=== PATIENT | male | born 1955 | race Caucasian/White ===

== ENCOUNTER 2025-06-25 20:46 | Emergency (ER) | payer BC, MEDICAID ==
[~2025-06-25] VITALS: Ht 175.3 cm; Wt 98.0 kg
[~2025-06-25 20:46] MED LIST: CLIN-224 PO; NO HOME MEDS
[2025-06-25 21:04] VITALS: BP 149/95; PULSE 85; O2SAT 97
--- NOTE | 2025-06-25 21:19 | ELECTROCARDIOGRAPH REPORT ---
[facility] Test Date: 2025-06-25 Test Time: 21:16:48 Pat Name: MELISSA GREER Department: [facility] Patient ID: [id number] Room: Gender: M Pack Master: : 1955 Requested By: NORIS FREGOSO Order Number: [id number] Reading MD: Dr. Markus Levi Measurements Intervals [place] Rate: 84 P: 57 DE: 146 QRS: 8 QRSD: 91 T: 32 QT: 366 QTc: 433 Interpretive Statements Sinus rhythm Low voltage, precordial leads Abnormal R-wave progression, late transition Electronically Signed On 06-30-2025 20:44:[address] Markus Levi Please click the below link to view image of tracing.
[2025-06-25 23:38] VITALS: RESP 16
[2025-06-26 00:18] VITALS: TEMP 97.8
--- NOTE | 2025-06-26 00:18 | Physician Documentation ---
History of Present Illness ~ Chief Complaint: Dizziness Stated Complaint: DIZZY Time Seen by MD: 00:20 Primary Medical Doctor: [facility] [place] This is a 69-year-old male who presents to the emergency department with concern for several years of episodes of dizziness described as the world moving around me without clear trigger that have become more frequent in the last few weeks. Patient reports no other acute symptoms or concerns. Patient reports symptoms are not currently present. Medication Reconciliation Allergies: Coded Allergies: codeine (Verified Adverse Reaction, Intermediate, GI UPSET, 06/15/12) Scheduled Clindamycin HCL* (Clindamycin HCL*), 1 CAP PO Q6H Clindamycin HCL* (Clindamycin HCL*), 1 CAP PO Q6H Meclizine HCl (Meclizine HCl), 1 TAB PO TID PRN Miscellaneous Medications Home Med List (No Home Medications), (Reported) Past Medical History Past Medical History: Emphysema, Cellulitis, *INFECTIOUS DZ* Past Surgical History: orthopedic surgeries, other Other Past Family History: NONCONTRIBUTORY Alcohol Use: Occasionally Drug Use: marijuana Lives with: Alone Lives In: Home Occupation: unemployed Review of Systems ROS As stated above in the HPI, otherwise all systems are reviewed and negative. Physical Exam Vital Signs: Temperature: 97.8, Source: Temporal, Heart Rate: 85, Respiratory Rate: 16, BP: 149/95, Pulse Oximetry: 97, Weight: 98.000 Physical Exam VITALS: Reviewed and as above. GENERAL: Alert, nontoxic appearing, no apparent distress. HEENT: PERRLA, EOMI RESPIRATORY: No increased work of breathing, no respiratory distress, speaking in full clear sentences NEURO: Normal steady gait without assistance, no focal motor weakness Progress Results/Orders Results/Orders Vital Signs 06/25/25 06/25/25 06/26/25 21:04 23:38 00:18 Temp 97.8 97.8 Pulse 85 Resp 15 16 B/P (MAP) 149/95 Pulse Ox 97 EKG/XRAY/CT/US/VASC/MRI EKG : Additional Comment EKG at 9:16 p.m. interpreted by myself as sinus rhythm at a rate of 84, normal axis, no ST-elevation or depression. Medical Decision Making Additional information obtaine: N/A Findings This 69-year-old male presented with episodes of dizziness described as the world moving around me more frequent you last several weeks, an EKG was obtained which did not demonstrate significant abnormality including no evidence of dysrhythmia, myocardial infarction, or ischemia. Patient was roomed and awaiting provider when he informed staff that he no longer wanted to be seen, had a brief discussion with the patient about his symptoms and advised him that if he wanted to be worked up he could stay however based on his description of symptoms you may benefit from meclizine for vertigo, with shared decision-making patient will continue his workup outpatient and we will be discharged with a prescription for meclizine. It is reassuring patient is currently asymptomatic and had no other neuro findings and reported no other neuro concerns related to episodes of dizziness. Patient has been advised that not all possible causes of his symptoms have been ruled out including serious condition such as stroke or TIA. Patient provided careful return to care precautions, follow up instructions, and home care instructions which he verbalized understanding of. Differential Dx:Considerations: Include: anemia, CVA, dehydration, dysrhythmia, electrolyte imbalance, encephalopathy, Guillain-[place], hypoglycemia, hypotension, hypovolemia, labyrinthitis, Meniere's disease, myasathenia gravis, myocardial infarction, pulmonary embolus, renal failure, respiratory failure, TIA, vertigo central, vertigo peripheral, vestibular neuronitis Departure Time of Disposition: 00:18 Disposition: 01 HOME / SELF CARE / HOMELESS Impression: Primary Impression: Dizziness Condition: Improved Discharge Instructions: Dizziness Additional Instructions: Your symptoms seem to be a form of vertigo, we have not ruled out all possibilit ies including serious possibilities though upon your request we will be discharging you. Please use the prescribed meclizine as needed for episodes of dizziness. If you change your mind about wanting to be worked up further please return to the emergency department. Please follow up with your primary care provider in the next few days. Please return to the emergency department for any new or worsening concerning symptoms. Referrals: NO PRIMARY CARE PROVIDER (PCP) Prescriptions Meclizine HCl (Meclizine HCl) 25 Mg Tablet 1 TAB PO TID PRN for 10 Days, #30 TAB Prov: JERRY WONGP 06/26/25 Education Educated: Patient Educated regarding: diagnosis, treatment, prognosis, need for follow up Signature Scribe Signature: No scribe Attestation: The note accurately reflects work and decisions made by me.EDEN Willis 06/26/25 01:05 Parts of this note were created using [employer] voice recognition software program. While efforts were made to correct any mistakes made by this voice r ecognition software program, nonsensical phrases may remain in this note. In addition, there may be errors and syntax, grammar, content and spelling. JERRY WONG Jun 26, 2025 00:18
[2025-06-26] MEDS ORDERED: MECL-302 PO (00:19)
== END 2025-06-26 00:22 | disposition home or self-care (01) ==
LOC: ER 20:46
DX: R42 Dizziness and giddiness (principal); F12.90 Cannabis use, unspecified, uncomplicated; Z88.5 Allergy status to narcotic agent; Z56.0 Unemployment, unspecified; Z60.2 Problems related to living alone; Z72.89 Other problems related to lifestyle; Z79.899 Other long term (current) drug therapy
CPT/HCPCS: 93005; 99283